=== PATIENT | female | born 1970 | race Hispanic/Latino ===

== ENCOUNTER 2018-09-24 13:25 | Emergency (ER) | payer MEDICAID ==
[~2018-09-24 13:25] MED LIST: ATOR10TA69 PO; CALC-190 PO; CYCL5TAB PO; ESCI20TA36 PO; HYDR25TA PO; LEVO137T2 PO; LEVO500T2 PO; LISI10TA7 PO; METO10TA41 PO; PANT40TA25 PO; POTA10CA44 PO
[2018-09-24] MEDS ORDERED: ACETAMINOPHEN EXTRA STRENGTH 500 MG TABLET ONE (14:32)
== END 2018-09-24 14:46 | disposition home or self-care (01) ==
LOC: EDH 13:25
DX: S60.221A Contusion of right hand, initial encounter (principal); K21.9 Gastro-esophageal reflux disease without esophagitis; E78.5 Hyperlipidemia, unspecified; I10 Essential (primary) hypertension; E07.9 Disorder of thyroid, unspecified; Z88.0 Allergy status to penicillin; Z91.041 Radiographic dye allergy status; Z86.73 Personal history of transient ischemic attack (TIA), and cerebral infarction without residual deficits; X58.XXXA Exposure to other specified factors, initial encounter; Y93.89 Activity, other specified; Y92.89 Other specified places as the place of occurrence of the external cause; Y99.8 Other external cause status
CPT/HCPCS: 29125; 73130

== ENCOUNTER 2019-04-15 14:18 | Emergency (ER) | payer MEDICAID ==
[2019-04-15] MEDS ORDERED: IBUPROFEN 600 MG TABLET ONE (15:32)
== END 2019-04-15 15:40 | disposition home or self-care (01) ==
LOC: EDH 14:18
DX: S83.91XA Sprain of unspecified site of right knee, initial encounter (principal); I10 Essential (primary) hypertension; E78.5 Hyperlipidemia, unspecified; K21.9 Gastro-esophageal reflux disease without esophagitis; E07.9 Disorder of thyroid, unspecified; Z86.73 Personal history of transient ischemic attack (TIA), and cerebral infarction without residual deficits; Z98.51 Tubal ligation status; Z98.890 Other specified postprocedural states; Z88.0 Allergy status to penicillin; Z91.041 Radiographic dye allergy status; X50.1XXA Overexertion from prolonged static or awkward postures, initial encounter; Y93.89 Activity, other specified; Y92.89 Other specified places as the place of occurrence of the external cause; Y99.8 Other external cause status
CPT/HCPCS: 73562

== ENCOUNTER 2019-06-15 09:05 | Emergency (ER) | payer MEDICAID | END 2019-06-15 11:54 | disposition home or self-care (01) | LOC: EDH 09:05 | DX: S02.2XXA Fracture of nasal bones, initial encounter for closed fracture (principal); S00.11XA Contusion of right eyelid and periocular area, initial encounter; E78.5 Hyperlipidemia, unspecified; K21.9 Gastro-esophageal reflux disease without esophagitis; I10 Essential (primary) hypertension; E07.9 Disorder of thyroid, unspecified; Z91.041 Radiographic dye allergy status; Z88.0 Allergy status to penicillin; Z86.73 Personal history of transient ischemic attack (TIA), and cerebral infarction without residual deficits; Z98.890 Other specified postprocedural states; W18.39XA Other fall on same level, initial encounter; Y93.01 Activity, walking, marching and hiking; Y92.89 Other specified places as the place of occurrence of the external cause; Y99.8 Other external cause status | CPT/HCPCS: 70486 ==

== ENCOUNTER 2021-08-26 15:07 | Emergency (ER) | payer MEDICAID ==
[~2021-08-26] VITALS: Ht 165.1 cm; Wt 81.6 kg
[~2021-08-26 15:07] MED LIST changes: -ESCI20TA36 PO; +ESCI20TA38 PO; +LISI10TA24 PO; -LISI10TA7 PO; -PANT40TA25 PO; +PANT40TA54 PO
[2021-08-26] MEDS ORDERED: SOLU-MEDROL 125MG VIAL ONE (15:40)
[2021-08-26] MEDS ORDERED: SOLU-MEDROL 125MG VIAL IVP ONE (16:00)
[2021-08-26] MEDS ORDERED: FAMOTIDINE 20MG VIAL IV ONE (16:00)
[2021-08-26] MEDS ORDERED: FAMO-136 PO (17:50)
[2021-08-26] MEDS ORDERED: METH4TAB3 PO (17:52)
[2021-08-26 18:11] VITALS: BP 118/70
== END 2021-08-26 18:11 | disposition home or self-care (01) ==
LOC: EDH 15:07
DX: T78.3XXA Angioneurotic edema, initial encounter (principal); T78.49XA Other allergy, initial encounter; E03.9 Hypothyroidism, unspecified; E78.00 Pure hypercholesterolemia, unspecified; I10 Essential (primary) hypertension; Z91.041 Radiographic dye allergy status; Z79.52 Long term (current) use of systemic steroids; Z79.899 Other long term (current) drug therapy; Z86.73 Personal history of transient ischemic attack (TIA), and cerebral infarction without residual deficits; Z88.0 Allergy status to penicillin; Z88.8 Allergy status to other drugs, medicaments and biological substances; X58.XXXA Exposure to other specified factors, initial encounter
CPT/HCPCS: 96374; 96375; 99284; J2930; S0028; J3490

== ENCOUNTER 2022-05-20 12:31 | Emergency (ER) | payer MEDICAID ==
[~2022-05-20] VITALS: Ht 165.1 cm; Wt 88.5 kg
[~2022-05-20 12:31] MED LIST changes: +FAMO-136 PO; +METH4TAB3 PO
[2022-05-20 13:18] LABS: BASOPHILS % (AUTO) 0.6 % (0.0-5.0); EOSINOPHILS % (AUTO) 4.3 % (0.0-8.0); HEMATOCRIT 38.8 % (36-48); LYMPHOCYTES % (AUTO) 22.4 % (21.0-51.0); MEAN CORPUSCULAR HGB CONC 33.5 g/dL (32.0-36.0); MEAN CORPUSCULAR VOLUME 83.4 fL (79-99); MONOCYTES % (AUTO) 8.8 % (3.0-13.0); NEUTROPHILS % (AUTO) 63.2 % (40.0-77.0); PLATELET COUNT (AUTO) 238 K/uL (130-400); RED BLOOD CELL COUNT(AUTO) 4.65 MIL/uL (4.00-5.50); RED CELL DISTRIBUTION WIDTH 13.2 % (11.0-15.5)
[2022-05-20 13:40] LABS: ALBUMIN 3.5 g/dL (3.5-5.0); BILIRUBIN,TOTAL 0.4 mg/dL (0.2-1.0); CREATININE 1.1 mg/dL (0.5-1.5); TOTAL PROTEIN, SERUM 7.9 g/dL (6.0-8.3)
[2022-05-20 13:53] LABS: B-TYPE NATRIURETIC PEPTIDE 88 pg/mL (0-100)
[2022-05-20] MEDS ORDERED: ACET-2247 PO (14:36)
[2022-05-20 15:06] VITALS: BP 122/72
== END 2022-05-20 15:06 | disposition home or self-care (01) ==
LOC: EDH 12:31
DX: M25.562 Pain in left knee (principal); M79.605 Pain in left leg; I10 Essential (primary) hypertension; R53.1 Weakness; E03.9 Hypothyroidism, unspecified; E78.00 Pure hypercholesterolemia, unspecified; Z79.52 Long term (current) use of systemic steroids; Z79.899 Other long term (current) drug therapy; Z85.850 Personal history of malignant neoplasm of thyroid; Z86.73 Personal history of transient ischemic attack (TIA), and cerebral infarction without residual deficits; Z88.0 Allergy status to penicillin; Z88.8 Allergy status to other drugs, medicaments and biological substances
CPT/HCPCS: 36415; 71045; 73562; 80053; 83880; 84484; 85025; 93971

== ENCOUNTER 2024-06-22 23:16 | Emergency (ER) | payer MEDICAID ==
[~2024-06-22] VITALS: Ht 165.1 cm; Wt 79.8 kg
[~2024-06-22 23:16] MED LIST changes: +ACET-2247 PO; -POTA10CA44 PO; +POTA10CA95 PO
[2024-06-23 00:35] LABS: BASOPHILS # (AUTO) 0.02 K/uL (0.00-0.20); BASOPHILS % (AUTO) 0.2 % (0.0-5.0); EOSINOPHILS # (AUTO) 0.13 K/uL (0.00-0.70); EOSINOPHILS % (AUTO) 1.3 % (0.0-8.0); HEMATOCRIT 39.2 % (36-48); IMMATURE GRANULOCYTE ABSOLUTE 0.05 K/uL (0-1); LYMPHOCYTES # (AUTO) 0.8 K/uL (1.0-4.8); MEAN CORPUSCULAR HEMOGLOBIN 29.6 pg (27.0-33.0); MEAN CORPUSCULAR HGB CONC 34.7 g/dL (32.0-36.0); MEAN CORPUSCULAR VOLUME 85.2 fL (79-99); MONOCYTES # (AUTO) 0.4 K/uL (0.1-1.0); MONOCYTES % (AUTO) 3.7 % (3.0-13.0); NEUTROPHILS # (AUTO) 8.8 K/uL (1.8-7.7); NEUTROPHILS % (AUTO) 86.3 % (40.0-77.0); PLATELET COUNT (AUTO) 182 K/uL (130-400); RED CELL DISTRIBUTION WIDTH 13.4 % (11.0-15.5); WHITE BLOOD COUNT (AUTO) 10.1 K/uL (4.8-10.8)
[2024-06-23 00:46] LABS: CREATININE 1.1 mg/dL (0.5-1.0); POTASSIUM 3.2 mmol/L (3.5-5.1)
[2024-06-23 00:50] LABS: ALBUMIN 3.5 g/dL (3.5-5.0); BILIRUBIN,TOTAL 0.6 mg/dL (0.2-1.0); TOTAL PROTEIN, SERUM 7.5 g/dL (6.0-8.3)
[2024-06-23 01:00] VITALS: BP 136/88; PULSE 88; RESP 18; O2SAT 97
[2024-06-23] MEDS ORDERED: HYDR-4064 PO (01:05)
[2024-06-23] MEDS: MORPHINE 4 MG SYG IVP ONE ×2 (01:12→02:14)
== END 2024-06-23 01:14 | disposition home or self-care (01) ==
LOC: EDH 23:16
DX: S42.294A Other nondisplaced fracture of upper end of right humerus, initial encounter for closed fracture (principal); E03.9 Hypothyroidism, unspecified; E78.00 Pure hypercholesterolemia, unspecified; I10 Essential (primary) hypertension; Z79.890 Hormone replacement therapy; Z79.899 Other long term (current) drug therapy; Z86.73 Personal history of transient ischemic attack (TIA), and cerebral infarction without residual deficits; Z88.0 Allergy status to penicillin; Z88.8 Allergy status to other drugs, medicaments and biological substances; Z90.710 Acquired absence of both cervix and uterus; Z91.041 Radiographic dye allergy status; W18.2XXA Fall in (into) shower or empty bathtub, initial encounter; Y93.E1 Activity, personal bathing and showering; Y92.89 Other specified places as the place of occurrence of the external cause; Y99.8 Other external cause status
CPT/HCPCS: 99284; 80053; 83690; 85025; 36415; 73060; 73030; 96374; J2270